=== PATIENT | female | born 1980 | race Caucasian/White ===

== ENCOUNTER 2016-10-14 09:49 | Inpatient (IN) ==
[2016-10-14] MEDS ORDERED: ZOFRAN IV PRN (21:15)
[2016-10-14] MEDS ORDERED: PITOCIN 30 UNITS/LR 30 UNITS/500 ML IV.SOLN IV SCH (21:15)
[2016-10-14] MEDS ORDERED: TYLENOL PO PRN (21:15)
[2016-10-14] MEDS ORDERED: STADOL IV PRN ×2 (21:15)
[2016-10-14] MEDS ORDERED: KEFZOL 1 GM/D5W 1 GM/50 ML IVPB IV PRN (21:15)
[2016-10-14] MEDS ORDERED: BRETHINE SUBQ PRN (21:15)
[2016-10-14] MEDS ORDERED: AMBIEN PO PRN (21:15)
[2016-10-14] MEDS ORDERED: PEPCID PO PRN (21:15)
[2016-10-14] MEDS ORDERED: PEPCID IV PRN (21:15)
[2016-10-14] MEDS ORDERED: LR 1,000 ML IV ONE (22:00)
[2016-10-14] MEDS ORDERED: CYTOTEC PO ONE (23:00)
[2016-10-14] MEDS ORDERED: MARCAINE 0.25% PF INJ PRN (23:02)
[2016-10-14] MEDS ORDERED: FENTANYL-BUPIV-NS 2 MCG-0.1% 200 ML EPIDURAL PRN (23:02)
[2016-10-14 23:30] LABS: URINE SOURCE VOIDED
[2016-10-14 23:47] LABS: MANUAL DIFF NEEDED? NO
[2016-10-14 23:52] LABS: BILIRUBIN URINE NEGATIVE (NEGATIVE); BLOOD URINE NEGATIVE (NEGATIVE); CLARITY CLEAR (CLEAR); COLOR YELLOW; GLUCOSE URINE NEGATIVE (NEGATIVE); LEUKOCYTES URINE NEGATIVE (NEGATIVE); NITRITE URINE NEGATIVE (NEGATIVE); PH URINE 6.5; PROTEIN URINE TRACE mg/dL (NEGATIVE); UROBILINOGEN URINE NORMAL
[2016-10-14 23:56] LABS: BASO% 0.2 % (0.0-0.8); EOS# 0.45 X1000 (0.0-0.7); EOS% 4.8 % (0.0-10.0); HEMOGLOBIN 11.9 g/dL (12.0-16.0); IMM GRAN# 0.03 X1000 (0.0-0.04); IMM GRAN% 0.3 % (0.0-0.5); LYMPH# 1.92 X1000 (1.2-3.4); LYMPH% 20.5 % (20.5-51.1); MCH 32.4 PG (27-31); MCV 92.6 FL (81-99); MONO# 0.73 X1000 (0.11-0.59); MONO% 7.8 % (1.7-9.3); MPV 10.9 FL (7.4-10.4); NEUT% 66.4 % (42.2-75.2); PLT 184 X1000 (130-400); RBC 3.67 XMIL (4.2-5.4)
[2016-10-15] MEDS: STADOL IV PRN ×2 (00:06→06:25)
[2016-10-15] MEDS ORDERED: CYTOTEC PO SCH ×2 (03:00→07:00)
[2016-10-15] MEDS ORDERED: CYTOTEC PO ONE (03:00)
[2016-10-15] MEDS: LR 1,000 ML IV SCH ×2 (07:19→08:19)
[2016-10-15] MEDS ORDERED: MINERAL OIL ONE ×2 (08:12→10:30)
[2016-10-15] MEDS ORDERED: XYLOCAINE-MPF 1% ONE ×2 (08:13→10:30)
[2016-10-15] MEDS ORDERED: BENADRYL IV PRN (16:08)
[2016-10-15] MEDS ORDERED: BOOSTRIX VACCINE IM ONE (16:08)
[2016-10-15] MEDS ORDERED: PITOCIN IM PRN (16:08)
[2016-10-15] MEDS ORDERED: CYTOTEC PO PRN (16:08)
[2016-10-15] MEDS ORDERED: M-M-R II VACCINE SUBQ ONE (16:08)
[2016-10-15] MEDS ORDERED: PITOCIN 30 UNITS/LR 30 UNITS/500 ML IV.SOLN IV ONE (16:08)
[2016-10-15] MEDS ORDERED: PITOCIN 20 UNITS/LR 20 UNITS/1,000 ML IV.SOLN IV SCH (16:08)
[2016-10-15] MEDS ORDERED: HYDROXYZINE IM PRN (16:08)
[2016-10-15] MEDS ORDERED: AMBIEN PO PRN (16:08)
[2016-10-15] MEDS ORDERED: HYDROXYZINE PO PRN (16:08)
[2016-10-15] MEDS ORDERED: BENADRYL PO PRN (16:08)
[2016-10-15] MEDS ORDERED: XYLOCAINE-MPF 1% INJ PRN (16:08)
[2016-10-15] MEDS ORDERED: NORCO-5 PO PRN (16:08)
[2016-10-15] MEDS ORDERED: MINERAL OIL PO PRN (16:08)
--- NOTE | 2016-10-15 16:20 | OPERATIVE NOTE ---
PROCEDURE DATE: 10/15/2016 PREDELIVERY DIAGNOSES: Intrauterine at 40 weeks and 1 day for labor induction. POSTDELIVERY DIAGNOSES: Intrauterine at 40 weeks and 1 day for labor induction plus maternal exhaustion, nuchal cord x2, velamentous cord insertion and vacuum assisted vaginal delivery. PROCEDURE: Vacuum assisted vaginal delivery. PHYSICIAN: Stef Perez MD. ANESTHESIA: Epidural done by FINDINGS: Viable female , 6 pounds 7 ounces, 18 inches long. Do not have Apgars at this time. Cord blood was obtained. It was a 3-vessel cord. The placenta delivered spontaneously and intact. There was a primary vaginal laceration repaired with [id number] stitches of 3-0 Polysorb. ESTIMATED BLOOD LOSS: 100 mL. Please refer to Ms. Romero's records. She started receiving care in the 1st trimester. She had many visits, normal testing. Originally her quad screen was noted to be abnormal but a revealed a normal female infant. She reached 40 weeks. Desired labor induction. She was admitted last night. She was found to be 3 cm so Cytotec was held until this morning and at approximately 4 she was given a dose of Cytotec and then she was started on Pitocin at 8. She received epidural anesthesia, was artificially ruptured and made slow and steady progress throughout the day without major distress or dystocia. Once she became complete she began pushing. Brought the baby down to a +3 station. However could not push past that point. I explained the vacuum. Kiwi was opened then applied to the infant's head. 550 mmHg was used as the pressure and with the next contraction and 3 pulls with no popoff's the delivered occiput anterior. Once head delivered, nuchal cord x2 delivered without difficulty. Shoulders delivered followed by the rest of the body. The infant was placed on mother's abdomen. Cord doubly clamped and cut. Care of taken over by nursery personnel. Cord blood was obtained. The cord is inspected and found to be 3 vessels. Then gentle traction on the cord resulted in delivery of the placenta. As placenta was being inspected it was found to be intact however there was a definitely a velamentous cord insertion. It was then discarded. Inspection of the perineum and vagina revealed a midline laceration in the vagina. This was repaired with 3-0 Polysorb in a [id number] stitch. There were no clots or other foreign material. All counts were correct. Estimated blood loss 100 mL. Expect routine . cc: Stef Perez MD
[2016-10-15] MEDS: PERI MEDS (DERMOPLAST/NUPERCAINAL/TUCKS) MISC PRN (16:48)
[2016-10-15] MEDS: MOTRIN PO PRN (18:31)
[2016-10-15] MEDS: NORCO-10 PO PRN (18:31)
[2016-10-16] MEDS ORDERED: EPIFOAM FOAM TOP PRN (05:17)
[2016-10-16] MEDS: MOTRIN PO PRN ×3 (05:26→23:14)
[2016-10-16] MEDS: NORCO-10 PO PRN ×3 (05:26→23:14)
[2016-10-16] MEDS: PERICOLACE PO SCH ×2 (05:56→23:14)
[2016-10-16 06:09] LABS: MANUAL DIFF NEEDED? NO
[2016-10-16 06:13] LABS: BASO% 0.1 % (0.0-0.8); EOS# 0.31 X1000 (0.0-0.7); EOS% 2.6 % (0.0-10.0); HEMATOCRIT 32.7 % (37.0-47.0); HEMOGLOBIN 11.1 g/dL (12.0-16.0); IMM GRAN# 0.03 X1000 (0.0-0.04); IMM GRAN% 0.3 % (0.0-0.5); LYMPH# 1.18 X1000 (1.2-3.4); MCHC 33.9 g/dL (33-37); MCV 94.2 FL (81-99); MONO# 0.64 X1000 (0.11-0.59); MONO% 5.4 % (1.7-9.3); MPV 10.2 FL (7.4-10.4); NEUT% 81.6 % (42.2-75.2); PLT 163 X1000 (130-400); RBC 3.47 XMIL (4.2-5.4)
[2016-10-16] MEDS: HEMOCYTE PLUS CAPSULE PO SCH (09:28)
--- NOTE | 2016-10-16 10:59 | PROGRESS NOTE ---
DATE: 10/16/2016 SUBJECTIVE: She is day 1. Ms. Romero has no complaints. Her vital signs stable. She is afebrile. PHYSICAL EXAMINATION: Within normal limits. Uterus is firm. Hemoglobin 11.1. PLAN: Expect routine . cc: Stef Perez MD
[2016-10-16] MEDS: PERI MEDS (DERMOPLAST/NUPERCAINAL/TUCKS) MISC PRN (23:15)
[2016-10-17 08:28] VITALS: BP 116/56
[2016-10-17] MEDS: HEMOCYTE PLUS CAPSULE PO SCH (08:47)
[2016-10-17] MEDS: NORCO-10 PO PRN (08:47)
[2016-10-17] MEDS: MOTRIN PO PRN (08:47)
--- NOTE | 2016-10-17 20:47 | DISCHARGE SUMMARY ---
ADMISSION DATE: 10/14/2016 DISCHARGE DATE: 10/17/2016 ADMITTING DIAGNOSIS: 1. Term . 2. Admitted for labor induction. DIAGNOSES: 1. Term delivered via vacuum assisted vaginal delivery. 2. Nuchal cord velamentous cord insertion. CONDITION: Stable. DIET: As tolerated. ACTIVITY: Routine . MEDICATIONS: She is to continue vitamins and iron, stool softener, Motrin 800 and [place] 5. FOLLOWUP: She is to follow up in 6 weeks at the office. HOSPITAL COURSE: Please refer to Ms. Romero's course and delivery note and progress note. She was admitted on , delivered on Tuesday, has done well since then and understands the need for discharge even though her baby will not be discharged. All questions have been answered. PHYSICAL EXAMINATION: Vital signs: Temperature 96.6 degrees, pulse 89, respiratory 18, blood pressure 116/56. General: She is alert, cooperative, no distress. Neck: Supple. Lungs: Clear. Heart: Regular sinus rhythm. Abdomen: Is distended. Uterus firm, nontender. Extremities: +2 lower extremity edema. LABORATORY VALUES: Her postdelivery hemoglobin and hematocrit 11.1/32.7. Will discharge with above instructions. cc: Stef Perez MD
== END 2016-10-17 14:35 | disposition home or self-care (01) ==
LOC: P.LD 21:10
PROVIDERS: ADMIT Obstetrics & Gynecology; ATTEND Obstetrics & Gynecology